=== PATIENT | female | born 1975 | race Caucasian/White ===

== ENCOUNTER 2018-07-05 08:32 | Emergency (ER) | payer OTHER ==
[~2018-07-05] VITALS: Ht 152.4 cm; Wt 53.1 kg
[~2018-07-05 08:32] MED LIST: AMOX1TAB12 PO
[2018-07-05] MEDS ORDERED: LYRICA50 MG (08:44)
[2018-07-05] MEDS ORDERED: DICLOFENAC POTA50 MG (08:45)
[2018-07-05] MEDS ORDERED: FLEXERIL 5 MG (08:45)
[2018-07-05] MEDS ORDERED: ZOCOR20 MG (08:45)
[2018-07-05] MEDS ORDERED: SIMPONI50 MG/0.1 (08:46)
== END 2018-07-05 13:06 | disposition home or self-care (01) ==
LOC: ER 08:32
DX: M25.511 Pain in right shoulder (principal)